=== PATIENT | male | born 1960 | race Caucasian/White ===

== ENCOUNTER 2022-11-14 12:55 | Emergency (ER) | payer OTHER | END 2022-11-14 14:05 | disposition home or self-care (01) | LOC: ERS 12:55 | DX: G51.0 Bell's palsy (principal); I25.10 Atherosclerotic heart disease of native coronary artery without angina pectoris; E78.00 Pure hypercholesterolemia, unspecified; I10 Essential (primary) hypertension; Z79.82 Long term (current) use of aspirin; Z79.899 Other long term (current) drug therapy | CPT/HCPCS: 99283 ==

== ENCOUNTER 2023-04-24 08:18 | Observation (INO) | payer OTHER ==
[2023-04-24] MEDS ORDERED: Nitroglycerin 2% Ointment 1 INCH/1 GM Packet ONE (09:05)
[2023-04-24] MEDS ORDERED: Aspirin Chewable 81 MG TAB ONE (09:05)
[2023-04-24 09:09] LABS: #Basophils 0.1 thou/uL (0.0-0.2); #Eosinphils 0.3 thou/uL (0.0-0.7); #Monocytes 0.6 thou/uL (0.11-0.59); #Neutrophils 3.2 thou/uL (1.40-6.50); %Basophils 0.8 % (0.0-1.0); %Lymphocytes 31.4 % (21.0-51.0); %Neutrophils 52.5 % (42.0-75.0); Hematocrit 42.5 % (42.0-52.0); Hemoglobin 14.7 g/dL (14.0-18.0); Mean Corpuscular HGB CONC 34.6 g/dL (32.0-36.0); Mean Corpuscular Hemoglobin 29.5 pg (27.0-31.0); Mean Corpuscular Volume 85.3 fl (78.0-98.0); Mean Platelet Volume 10.9 fL (7.4-10.4); Platelet Count 238 10x3/uL (130-400); RBC Distribution Width 12.7 % (11.5-14.5); Red Blood Cell (RBC) Count 4.98 mill/uL (4.70-6.10)
[2023-04-24 09:42] LABS: ALT (SGPT) 67 U/L (8-55); AST (SGOT) 45 U/L (5-34); Albumin 4.2 g/dL (3.5-5.0); Alkaline Phosphatase 97 U/L (40-110); Anion Gap 13 mmol/L (10-20); BUN (Urea Nitrogen) 12 mg/dL (8.4-25.7); Bilirubin, Total 0.5 mg/dL (0.2-1.2); Calc. Creatinine Clearance 0 mL/min (70-130); Calcium 9.4 mg/dL (7.8-10.44); Carbon Dioxide 23 mmol/L (22-29); Chloride 105 mmol/L (98-107); Estimated GFR 94; Globulin 2.9 g/dL (2.4-3.5); Glucose 162 mg/dL (70-105); Lipase 19 U/L (8-78); Magnesium 1.6 mg/dL (1.6-2.6); Potassium 4.1 mmol/L (3.5-5.1); Protein, Total 7.1 g/dL (6.0-8.3); Sodium 137 mmol/L (136-145)
[2023-04-24 09:44] LABS: Troponin I Less than 0.010 ng/mL (< 0.028)
[2023-04-24] MEDS ORDERED: Ondansetron PF 4 MG/2 ML Vial IVP PRN (10:53)
[2023-04-24 12:07] LABS: Troponin I Less than 0.010 ng/mL (< 0.028)
[2023-04-24] MEDS: Pantoprazole 40 MG VIAL IVP SCH (13:10)
[2023-04-24] MEDS: Nitroglycerin 2% Ointment 1 INCH/1 GM Packet TOP SCH (13:59)
[2023-04-24 15:10] LABS: Troponin I Less than 0.010 ng/mL (< 0.028)
[2023-04-24 15:13] VITALS: BMI 37.3
[2023-04-24] MEDS: Amlodipine 5 MG TAB PO SCH (20:57)
[2023-04-24] MEDS: Atorvastatin Calcium 40 MG TAB PO SCH (20:57)
[2023-04-24] MEDS: Acetaminophen 325 MG TAB PO PRN (21:02)
[2023-04-25 05:55] LABS: Anion Gap 14 mmol/L (10-20); BUN (Urea Nitrogen) 18 mg/dL (8.4-25.7); Calc. Creatinine Clearance 142 mL/min (70-130); Calcium 9.2 mg/dL (7.8-10.44); Carbon Dioxide 22 mmol/L (22-29); Cardiac Risk 4.2 (Less than 4.5); Chloride 105 mmol/L (98-107); Cholesterol 139 mg/dl (< 200 Desired); Estimated GFR 98; Glucose 122 mg/dL (70-105); HDL Cholesterol 33 mg/dL (>60 Neg Risk); LDL Cholesterol, Calculated 39 mg/dL; Potassium 3.8 mmol/L (3.5-5.1); Sodium 137 mmol/L (136-145); Triglycerides 334 mg/dL (Less than 150)
[2023-04-25] MEDS: Lansoprazole 15 MG/5 ML (BATCHED)UDCUP PO SCH (09:00)
[2023-04-25] MEDS: Aspirin Chewable 81 MG TAB PO SCH (09:00)
[2023-04-25] MEDS ORDERED: Regadenoson 0.4 MG/5 ML SYRINGE ONE (10:18)
[2023-04-25] MEDS: Nitroglycerin 2% Ointment 1 INCH/1 GM Packet TOP SCH ×2 (15:32→17:08)
[2023-04-25] MEDS: Clopidogrel Bisulfate 75 MG TAB PO SCH (15:32)
[2023-04-25 15:34] VITALS: BP 134/79; TEMP 97.5
[2023-04-25] MEDS ORDERED: Icosapent Ethyl 1 GM CAPSULE PO SCH (21:00)
[2023-04-25] MEDS ORDERED: Nitroglycerin 2% Ointment 1 INCH/1 GM Packet TOP SCH (22:00)
== END 2023-04-25 18:26 | disposition home or self-care (01) ==
LOC: ERS 08:18 → 2SW 10:10
PROVIDERS: ADMIT Family Medicine; ATTEND Family Medicine
DX: R07.89 Other chest pain (principal); I25.10 Atherosclerotic heart disease of native coronary artery without angina pectoris; I35.1 Nonrheumatic aortic (valve) insufficiency; I10 Essential (primary) hypertension; E78.5 Hyperlipidemia, unspecified; K21.9 Gastro-esophageal reflux disease without esophagitis; R94.5 Abnormal results of liver function studies; F12.90 Cannabis use, unspecified, uncomplicated; Z95.1 Presence of aortocoronary bypass graft; Z79.82 Long term (current) use of aspirin; Z79.899 Other long term (current) drug therapy; Z90.49 Acquired absence of other specified parts of digestive tract; Z87.891 Personal history of nicotine dependence
CPT/HCPCS: 36415; 71045; 78452; 80048; 80053; 80061; 83690; 83735; 83880; 84484; 85025; 85379; 93005; 93017; 93306; 94760; 96374; A9502; C9113; G0378; J2785